=== PATIENT | female | born 1965 | race Caucasian/White ===

== ENCOUNTER 2018-03-08 18:37 | Inpatient (IN) | payer OTHER ==
[~2018-03-08 18:37] MED LIST: BISACODYL 10 MG SUPP PR; DEXTROSE 50% 50 ML SYRINGE IV; FLEET ENEMA PR; GLUCAGON FOR INJ 1 MG VIAL (J1610) SC; GLUCOSE 4 GM CHEW TABLET PO; ONDANSETRON 4 MG TAB (S0181) PO
[2018-03-08] MEDS: HumaLOG INSULIN (NovoLOG) PER UNIT SC (19:20)
[2018-03-08] MEDS: ATORVASTATIN 20 MG TAB PO (21:22)
[2018-03-08] MEDS: metFORMIN (GLUCOPHAGE) 500 MG TAB PO (21:23)
[2018-03-08] MEDS ORDERED: PILL CRUSHER/CUTTER 1 EACH XX (21:45)
[2018-03-09] MEDS: ACETAMINOPHEN TAB 650MG DOSE (2X325MG) PO ×2 (06:48→20:36)
[2018-03-09 06:50] LABS: HEMATOCRIT 38.3 % (36.0-47.0); HEMOGLOBIN 12.3 g/dl (12.0-15.5); MEAN CORPUSCULAR HEMOGLOBIN 22.7 pg (27.0-33.0); MEAN CORPUSCULAR HGB CONC 32.1 g/dl (32.0-36.5); MEAN CORPUSCULAR VOLUME 70.8 fl (80.0-96.0); PLATELET COUNT, AUTOMATED 307 10^3/uL (150-450); RED BLOOD COUNT 5.41 10^6/uL (4.00-5.40); RED CELL DISTRIBUTION WIDTH 13.6 % (11.5-14.5); WHITE BLOOD COUNT 10.4 10^3/uL (4.0-10.0)
[2018-03-09 06:51] LABS: ADD MANUAL DIFFER YES; DIFF SLIDE NUMBER 70; POSITIVE DIFF POS FLAG
[2018-03-09 07:17] LABS: ATYPICAL LYMPH 1 % (0-5); BASOPHILS 2 % (0-4); EOSINOPHILS 1 % (0-5); LYMPHOCYTES 44 % (16-52); MONOCYTES 4 % (0-8); NEUTROPHILS 48 % (35-75)
[2018-03-09 07:18] LABS: ANISOCYTOSIS 1+; PLATELET ESTIMATE NORMAL (NORMAL)
[2018-03-09 07:20] LABS: ALBUMIN 3.6 GM/DL (3.2-5.2); ALBUMIN/GLOBULIN RATIO 0.86 (1.00-1.93); ALKALINE PHOSPHATASE 95 U/L (45-117); ALT/SGPT 83 U/L (12-78); ANION GAP 10 MEQ/L (8-16); AST/SGOT 31 U/L (7-37); BILIRUBIN,TOTAL 0.6 MG/DL (0.2-1.0); BLOOD UREA NITROGEN 15 MG/DL (7-18); CALCIUM LEVEL 9.2 MG/DL (8.5-10.1); CARBON DIOXIDE LEVEL 27 MEQ/L (21-32); CHLORIDE LEVEL 103 MEQ/L (98-107); CREATININE FOR GFR 0.65 MG/DL (0.55-1.30); GLOMERULAR FILTRATION RATE > 60.0 (>51); GLUCOSE, FASTING 171 MG/DL (70-100); POTASSIUM SERUM 3.9 MEQ/L (3.5-5.1); SODIUM LEVEL 140 MEQ/L (136-145); TOTAL PROTEIN 7.8 GM/DL (6.4-8.2)
[2018-03-09] MEDS: CLOPIDOGREL 75 MG TAB PO (08:25)
[2018-03-09] MEDS: ASPIRIN 81 MG ENTERIC TAB PO (08:25)
[2018-03-09] MEDS: PANTOPRAZOLE 40MG TAB (PROTONIX) PO (08:25)
[2018-03-09] MEDS: metFORMIN (GLUCOPHAGE) 500 MG TAB PO ×2 (08:25→18:16)
[2018-03-09] MEDS: HumaLOG INSULIN (NovoLOG) PER UNIT SC ×3 (08:25→18:16)
[2018-03-09] MEDS: OMEGA-3 1050MG CAPSULE PO (08:25)
[2018-03-09 12:34] LABS: BEDSIDE GLUCOSE 243 MG/DL (70-105)
[2018-03-09 13:40] LABS: CK-MB VALUE MASS < 1.0 NG/ML (<3.6); CPK CREATINE PHOSPHOKINASE 40 U/L (26-192); TROPONIN I < 0.02 NG/ML (< 0.10)
[2018-03-09 13:51] LABS: HEPATITIS B SURFACE ANTIGEN NEGATIVE (NEGATIVE)
[2018-03-09 14:07] LABS: BEDSIDE GLUCOSE 158 MG/DL (70-105)
[2018-03-09 14:19] LABS: HEPATITIS B CORE ANTIBODY IGM NEGATIVE (NEGATIVE)
[2018-03-09 14:21] LABS: HEPATITIS A ANTIBODY IGM NEGATIVE (NEGATIVE)
[2018-03-09 16:59] LABS: BEDSIDE GLUCOSE 188 MG/DL (70-105)
[2018-03-09 20:10] LABS: CK-MB VALUE MASS < 1.0 NG/ML (<3.6); CPK CREATINE PHOSPHOKINASE 37 U/L (26-192); TROPONIN I < 0.02 NG/ML (< 0.10)
[2018-03-09] MEDS: AMITRIPTYLINE 50 MG TAB PO (20:36)
[2018-03-09] MEDS: ATORVASTATIN 20 MG TAB PO (20:36)
[2018-03-10 03:48] LABS: HEMATOCRIT 36.1 % (36.0-47.0); HEMOGLOBIN 11.3 g/dl (12.0-15.5); MEAN CORPUSCULAR HEMOGLOBIN 22.2 pg (27.0-33.0); MEAN CORPUSCULAR HGB CONC 31.3 g/dl (32.0-36.5); MEAN CORPUSCULAR VOLUME 71.1 fl (80.0-96.0); PLATELET COUNT, AUTOMATED 285 10^3/uL (150-450); RED BLOOD COUNT 5.08 10^6/uL (4.00-5.40); RED CELL DISTRIBUTION WIDTH 13.5 % (11.5-14.5); WHITE BLOOD COUNT 11.9 10^3/uL (4.0-10.0)
[2018-03-10 04:05] LABS: ESTIMATED AVERAGE GLUCOSE 194 MG/DL (60-110); HEMOGLOBIN A1c 8.4 %
[2018-03-10 04:11] LABS: ALBUMIN 3.5 GM/DL (3.2-5.2); ALKALINE PHOSPHATASE 84 U/L (45-117); ALT/SGPT 67 U/L (12-78); ANION GAP 10 MEQ/L (8-16); AST/SGOT 17 U/L (7-37); BILIRUBIN,TOTAL 0.7 MG/DL (0.2-1.0); BLOOD UREA NITROGEN 13 MG/DL (7-18); CALCIUM LEVEL 8.9 MG/DL (8.5-10.1); CARBON DIOXIDE LEVEL 27 MEQ/L (21-32); CHLORIDE LEVEL 105 MEQ/L (98-107); CHOLESTEROL LEVEL 216 MG/DL (<200); CREATININE FOR GFR 0.57 MG/DL (0.55-1.30); GLOMERULAR FILTRATION RATE > 60.0 (>51); GLUCOSE, FASTING 135 MG/DL (70-100); HDL CHOLESTEROL 48 MG/DL (>40); LDL CHOLESTEROL 126.4 MG/DL (<100); NON-HDL-C 168 MG/DL; POTASSIUM SERUM 3.7 MEQ/L (3.5-5.1); SODIUM LEVEL 142 MEQ/L (136-145); TRIGLYCERIDES LEVEL 208 MG/DL (<150)
[2018-03-10 04:12] LABS: CK-MB VALUE MASS < 1.0 NG/ML (<3.6); CPK CREATINE PHOSPHOKINASE 37 U/L (26-192); TROPONIN I < 0.02 NG/ML (< 0.10)
[2018-03-10] MEDS: metFORMIN (GLUCOPHAGE) 500 MG TAB PO ×2 (08:47→17:48)
[2018-03-10] MEDS: CLOPIDOGREL 75 MG TAB PO (08:47)
[2018-03-10] MEDS: ASPIRIN 81 MG ENTERIC TAB PO (08:47)
[2018-03-10] MEDS: HumaLOG INSULIN (NovoLOG) PER UNIT SC ×3 (08:48→17:48)
[2018-03-10] MEDS: PANTOPRAZOLE 40MG TAB (PROTONIX) PO (08:48)
[2018-03-10] MEDS: OMEGA-3 1050MG CAPSULE PO (09:40)
[2018-03-10 11:49] LABS: BEDSIDE GLUCOSE 209 MG/DL (70-105)
[2018-03-10 16:54] LABS: BEDSIDE GLUCOSE 132 MG/DL (70-105)
[2018-03-10] MEDS: ATORVASTATIN 20 MG TAB PO (20:06)
[2018-03-10] MEDS: AMITRIPTYLINE 50 MG TAB PO (20:06)
[2018-03-11 06:42] LABS: BEDSIDE GLUCOSE 177 MG/DL (70-105)
[2018-03-11] MEDS: OMEGA-3 1050MG CAPSULE PO (08:13)
[2018-03-11] MEDS: CLOPIDOGREL 75 MG TAB PO (08:13)
[2018-03-11] MEDS: PANTOPRAZOLE 40MG TAB (PROTONIX) PO (08:13)
[2018-03-11] MEDS: ASPIRIN 81 MG ENTERIC TAB PO (08:13)
[2018-03-11] MEDS: HumaLOG INSULIN (NovoLOG) PER UNIT SC ×3 (08:13→17:25)
[2018-03-11] MEDS: metFORMIN (GLUCOPHAGE) 500 MG TAB PO ×2 (08:13→17:25)
[2018-03-11 11:48] LABS: BEDSIDE GLUCOSE 216 MG/DL (70-105)
[2018-03-11 16:47] LABS: BEDSIDE GLUCOSE 171 MG/DL (70-105)
[2018-03-11 21:01] LABS: BEDSIDE GLUCOSE 186 MG/DL (70-105)
[2018-03-11] MEDS: ATORVASTATIN 20 MG TAB PO (21:17)
[2018-03-11] MEDS: AMITRIPTYLINE 50 MG TAB PO (21:17)
[2018-03-12 06:49] LABS: HEMATOCRIT 34.8 % (36.0-47.0); MEAN CORPUSCULAR HEMOGLOBIN 22.5 pg (27.0-33.0); MEAN CORPUSCULAR HGB CONC 31.6 g/dl (32.0-36.5); MEAN CORPUSCULAR VOLUME 71.3 fl (80.0-96.0); PLATELET COUNT, AUTOMATED 262 10^3/uL (150-450); RED BLOOD COUNT 4.88 10^6/uL (4.00-5.40); RED CELL DISTRIBUTION WIDTH 13.5 % (11.5-14.5); WHITE BLOOD COUNT 9.3 10^3/uL (4.0-10.0)
[2018-03-12 06:50] LABS: ADD MANUAL DIFFER YES; DIFF SLIDE NUMBER 41; POSITIVE DIFF POS FLAG
[2018-03-12 07:05] LABS: ANION GAP 8 MEQ/L (8-16); BLOOD UREA NITROGEN 15 MG/DL (7-18); CALCIUM LEVEL 8.9 MG/DL (8.5-10.1); CARBON DIOXIDE LEVEL 27 MEQ/L (21-32); CHLORIDE LEVEL 106 MEQ/L (98-107); CREATININE FOR GFR 0.58 MG/DL (0.55-1.30); GLOMERULAR FILTRATION RATE > 60.0 (>51); GLUCOSE, FASTING 159 MG/DL (70-100); POTASSIUM SERUM 3.5 MEQ/L (3.5-5.1); SODIUM LEVEL 141 MEQ/L (136-145)
[2018-03-12 07:41] LABS: ATYPICAL LYMPH 2 % (0-5); BANDS 1 % (< 11); EOSINOPHILS 3 % (0-5); LYMPHOCYTES 58 % (16-52); MONOCYTES 3 % (0-8); NEUTROPHILS 33 % (35-75); PLATELET ESTIMATE NORMAL (NORMAL)
[2018-03-12 07:42] LABS: ANISOCYTOSIS 1+; HYPOCHROMASIA 1+; MICROCYTOSIS 1+
[2018-03-12] MEDS: ASPIRIN 81 MG ENTERIC TAB PO (08:56)
[2018-03-12] MEDS: metFORMIN (GLUCOPHAGE) 500 MG TAB PO ×2 (08:56→17:48)
[2018-03-12] MEDS: OMEGA-3 1050MG CAPSULE PO (08:57)
[2018-03-12] MEDS: PANTOPRAZOLE 40MG TAB (PROTONIX) PO (08:57)
[2018-03-12] MEDS: CLOPIDOGREL 75 MG TAB PO (08:57)
[2018-03-12] MEDS: HumaLOG INSULIN (NovoLOG) PER UNIT SC ×3 (08:57→17:48)
[2018-03-12 11:24] LABS: BEDSIDE GLUCOSE 316 MG/DL (70-105)
[2018-03-12 16:30] LABS: BEDSIDE GLUCOSE 169 MG/DL (70-105)
[2018-03-12] MEDS: AMITRIPTYLINE 50 MG TAB PO (20:13)
[2018-03-12] MEDS: ATORVASTATIN 20 MG TAB PO (20:13)
[2018-03-13 06:29] LABS: BEDSIDE GLUCOSE 152 MG/DL (70-105)
[2018-03-13] MEDS: HumaLOG INSULIN (NovoLOG) PER UNIT SC ×3 (07:45→17:08)
[2018-03-13] MEDS: ASPIRIN 81 MG ENTERIC TAB PO (07:45)
[2018-03-13] MEDS: metFORMIN (GLUCOPHAGE) 500 MG TAB PO ×2 (07:46→17:08)
[2018-03-13] MEDS: CLOPIDOGREL 75 MG TAB PO (07:46)
[2018-03-13] MEDS: PANTOPRAZOLE 40MG TAB (PROTONIX) PO (07:46)
[2018-03-13] MEDS: OMEGA-3 1050MG CAPSULE PO (07:46)
[2018-03-13 11:46] LABS: BEDSIDE GLUCOSE 170 MG/DL (70-105)
[2018-03-13 12:07] LABS: FERRITIN 158 NG/ML (8-252); IRON (FE) 97 UG/DL (50-170); PERCENT SATURATION 26.4 % (13.2-45.0); TOTAL IRON BINDING CAPACITY 367 UG/DL (250-450)
[2018-03-13] MEDS: TOPIRAMATE (TopAMAX) 25 MG TAB PO ×2 (13:50→20:08)
[2018-03-13 13:54] LABS: FOLATE 11.5 NG/ML (>5.4); VITAMIN B12 LEVEL 925 PG/ML (247-911)
[2018-03-13 16:53] LABS: BEDSIDE GLUCOSE 156 MG/DL (70-105)
[2018-03-13] MEDS ORDERED: AMITRIPTYLINE 25 MG TAB PO (19:00)
[2018-03-13] MEDS: ATORVASTATIN 20 MG TAB PO (20:08)
[2018-03-14 06:57] LABS: BEDSIDE GLUCOSE 173 MG/DL (70-105)
[2018-03-14 06:58] LABS: HEMATOCRIT 32.9 % (36.0-47.0); HEMOGLOBIN 10.7 g/dl (12.0-15.5); MEAN CORPUSCULAR HEMOGLOBIN 22.7 pg (27.0-33.0); MEAN CORPUSCULAR HGB CONC 32.5 g/dl (32.0-36.5); MEAN CORPUSCULAR VOLUME 69.9 fl (80.0-96.0); PLATELET COUNT, AUTOMATED 285 10^3/uL (150-450); RED BLOOD COUNT 4.71 10^6/uL (4.00-5.40); RED CELL DISTRIBUTION WIDTH 13.2 % (11.5-14.5); WHITE BLOOD COUNT 8.9 10^3/uL (4.0-10.0)
[2018-03-14] MEDS: metFORMIN (GLUCOPHAGE) 500 MG TAB PO ×2 (09:53→17:50)
[2018-03-14] MEDS: HumaLOG INSULIN (NovoLOG) PER UNIT SC ×3 (09:53→17:50)
[2018-03-14] MEDS: CLOPIDOGREL 75 MG TAB PO (09:53)
[2018-03-14] MEDS: TOPIRAMATE (TopAMAX) 25 MG TAB PO (09:53)
[2018-03-14] MEDS: ACETAMINOPHEN TAB 650MG DOSE (2X325MG) PO (09:53)
[2018-03-14] MEDS: PANTOPRAZOLE 40MG TAB (PROTONIX) PO (09:53)
[2018-03-14] MEDS: OMEGA-3 1050MG CAPSULE PO (09:53)
[2018-03-14] MEDS: ASPIRIN 81 MG ENTERIC TAB PO (09:53)
[2018-03-14] MEDS ORDERED: VARIBAR PUDDING 40% w/v 230ML TUBE As Ordered (10:14)
[2018-03-14] MEDS ORDERED: BARIUM SULFATE 700 MG TABLET (E-Z-DISK) As Ordered (10:14)
[2018-03-14] MEDS ORDERED: E-Z-PAQUE 96% w/w SUSP 176GM BTL As Ordered (10:14)
[2018-03-14] MEDS ORDERED: VARIBAR NECTAR 40% w/v 240ML SUSP BTL As Ordered (10:14)
[2018-03-14 12:03] LABS: BEDSIDE GLUCOSE 215 MG/DL (70-105)
[2018-03-14 16:50] LABS: BEDSIDE GLUCOSE 214 MG/DL (70-105)
[2018-03-14] MEDS: AMITRIPTYLINE 25 MG TAB PO (18:15)
[2018-03-14] MEDS: ATORVASTATIN 20 MG TAB PO (20:39)
[2018-03-15 06:27] LABS: BEDSIDE GLUCOSE 180 MG/DL (70-105)
[2018-03-15] MEDS: ASPIRIN 81 MG ENTERIC TAB PO (09:19)
[2018-03-15] MEDS: OMEGA-3 1050MG CAPSULE PO (09:19)
[2018-03-15] MEDS: metFORMIN (GLUCOPHAGE) 500 MG TAB PO ×2 (09:19→18:26)
[2018-03-15] MEDS: CLOPIDOGREL 75 MG TAB PO (09:19)
[2018-03-15] MEDS: HumaLOG INSULIN (NovoLOG) PER UNIT SC ×3 (09:19→18:27)
[2018-03-15] MEDS: PANTOPRAZOLE 40MG TAB (PROTONIX) PO (09:19)
[2018-03-15] MEDS: BISACODYL 5 MG TAB PO (09:19)
[2018-03-15 12:06] LABS: BEDSIDE GLUCOSE 270 MG/DL (70-105)
[2018-03-15 16:53] LABS: BEDSIDE GLUCOSE 188 MG/DL (70-105)
[2018-03-15] MEDS: AMITRIPTYLINE 25 MG TAB PO (18:27)
[2018-03-15] MEDS: ATORVASTATIN 20 MG TAB PO (20:22)
[2018-03-16 06:56] LABS: BEDSIDE GLUCOSE 166 MG/DL (70-105)
[2018-03-16] MEDS: PANTOPRAZOLE 40MG TAB (PROTONIX) PO (07:44)
[2018-03-16] MEDS: HumaLOG INSULIN (NovoLOG) PER UNIT SC ×3 (07:44→18:02)
[2018-03-16] MEDS: ASPIRIN 81 MG ENTERIC TAB PO (07:44)
[2018-03-16] MEDS: OMEGA-3 1050MG CAPSULE PO (07:44)
[2018-03-16] MEDS: CLOPIDOGREL 75 MG TAB PO (07:44)
[2018-03-16] MEDS: BISACODYL 5 MG TAB PO ×2 (07:45→09:53)
[2018-03-16] MEDS: metFORMIN (GLUCOPHAGE) 500 MG TAB PO ×2 (07:45→18:02)
[2018-03-16 07:47] LABS: HEMATOCRIT 35.4 % (36.0-47.0); HEMOGLOBIN 11.2 g/dl (12.0-15.5); MEAN CORPUSCULAR HEMOGLOBIN 22.5 pg (27.0-33.0); MEAN CORPUSCULAR HGB CONC 31.6 g/dl (32.0-36.5); MEAN CORPUSCULAR VOLUME 71.1 fl (80.0-96.0); PLATELET COUNT, AUTOMATED 332 10^3/uL (150-450); RED BLOOD COUNT 4.98 10^6/uL (4.00-5.40); RED CELL DISTRIBUTION WIDTH 13.5 % (11.5-14.5); WHITE BLOOD COUNT 8.6 10^3/uL (4.0-10.0)
[2018-03-16] MEDS: SENNA 8.6 MG TAB (SENOKOT) PO ×2 (09:53→21:32)
[2018-03-16 11:33] LABS: BEDSIDE GLUCOSE 176 MG/DL (70-105)
[2018-03-16 17:08] LABS: BEDSIDE GLUCOSE 224 MG/DL (70-105)
[2018-03-16] MEDS: AMITRIPTYLINE 25 MG TAB PO (18:02)
[2018-03-16] MEDS: ATORVASTATIN 20 MG TAB PO (21:32)
[2018-03-17 07:10] LABS: BEDSIDE GLUCOSE 178 MG/DL (70-105)
[2018-03-17] MEDS: metFORMIN (GLUCOPHAGE) 500 MG TAB PO ×2 (07:42→18:03)
[2018-03-17] MEDS: CLOPIDOGREL 75 MG TAB PO (07:42)
[2018-03-17] MEDS: ASPIRIN 81 MG ENTERIC TAB PO (07:42)
[2018-03-17] MEDS: PANTOPRAZOLE 40MG TAB (PROTONIX) PO (07:43)
[2018-03-17] MEDS: HumaLOG INSULIN (NovoLOG) PER UNIT SC ×3 (07:44→18:03)
[2018-03-17] MEDS: OMEGA-3 1050MG CAPSULE PO (07:44)
[2018-03-17 12:02] LABS: BEDSIDE GLUCOSE 198 MG/DL (70-105)
[2018-03-17 16:41] LABS: BEDSIDE GLUCOSE 176 MG/DL (70-105)
[2018-03-17] MEDS: AMITRIPTYLINE 25 MG TAB PO (18:03)
[2018-03-17] MEDS: SENNA 8.6 MG TAB (SENOKOT) PO (20:25)
[2018-03-17] MEDS: ATORVASTATIN 20 MG TAB PO (20:26)
[2018-03-18 06:14] LABS: BEDSIDE GLUCOSE 197 MG/DL (70-105)
[2018-03-18] MEDS: HumaLOG INSULIN (NovoLOG) PER UNIT SC ×3 (08:07→18:18)
[2018-03-18] MEDS: PANTOPRAZOLE 40MG TAB (PROTONIX) PO (08:08)
[2018-03-18] MEDS: metFORMIN (GLUCOPHAGE) 500 MG TAB PO ×2 (08:08→18:17)
[2018-03-18] MEDS: OMEGA-3 1050MG CAPSULE PO (08:08)
[2018-03-18] MEDS: ASPIRIN 81 MG ENTERIC TAB PO (08:08)
[2018-03-18] MEDS: CLOPIDOGREL 75 MG TAB PO (08:08)
[2018-03-18 11:44] LABS: BEDSIDE GLUCOSE 153 MG/DL (70-105)
[2018-03-18 16:36] LABS: BEDSIDE GLUCOSE 120 MG/DL (70-105)
[2018-03-18] MEDS: AMITRIPTYLINE 25 MG TAB PO (18:17)
[2018-03-18] MEDS: SENNA 8.6 MG TAB (SENOKOT) PO (20:03)
[2018-03-18] MEDS: ATORVASTATIN 20 MG TAB PO (20:03)
[2018-03-19 06:14] LABS: BEDSIDE GLUCOSE 117 MG/DL (70-105)
[2018-03-19] MEDS: HumaLOG INSULIN (NovoLOG) PER UNIT SC ×2 (09:39→12:44)
[2018-03-19] MEDS: CLOPIDOGREL 75 MG TAB PO (09:39)
[2018-03-19] MEDS: PANTOPRAZOLE 40MG TAB (PROTONIX) PO (09:40)
[2018-03-19] MEDS: OMEGA-3 1050MG CAPSULE PO (09:40)
[2018-03-19] MEDS: metFORMIN (GLUCOPHAGE) 500 MG TAB PO (09:40)
[2018-03-19] MEDS: ASPIRIN 81 MG ENTERIC TAB PO (09:40)
[2018-03-19 11:34] LABS: BEDSIDE GLUCOSE 268 MG/DL (70-105)
[2018-03-19] MEDS: AMITRIPTYLINE 25 MG TAB PO (15:45)
== END 2018-03-19 15:50 | disposition home or self-care (01) | DRG 58 ==
LOC: M PM&R 18:37
PROVIDERS: Physical Medicine & Rehabilitation
DX: I69.391 Dysphagia following cerebral infarction (principal); I50.32 Chronic diastolic (congestive) heart failure; I69.351 Hemiplegia and hemiparesis following cerebral infarction affecting right dominant side; E11.9 Type 2 diabetes mellitus without complications; E78.5 Hyperlipidemia, unspecified; D64.9 Anemia, unspecified; G46.3 Brain stem stroke syndrome; D72.829 Elevated white blood cell count, unspecified; Z79.899 Other long term (current) drug therapy; Z88.8 Allergy status to other drugs, medicaments and biological substances; Z79.4 Long term (current) use of insulin; K21.9 Gastro-esophageal reflux disease without esophagitis; K59.00 Constipation, unspecified; Z79.82 Long term (current) use of aspirin; R51 Headache